=== PATIENT | male | born 1990 | race Caucasian/White ===

== ENCOUNTER 2025-02-12 03:00 | Emergency (ER) | payer OTHER ==
[~2025-02-12] VITALS: Ht 182.9 cm; Wt 83.9 kg
[2025-02-12] MEDS: MORPHINE SULFATE 2 MG/1 ML DISP.SYRIN IM ONE (03:45)
[2025-02-12] MEDS: ONDANSETRON ODT 4 MG TAB.RAPDIS SL ONE (03:45)
[2025-02-12] MEDS ORDERED: KETO10TA2 PO (05:32)
[2025-02-12 05:48] VITALS: BP 124/66; TEMP 98; O2SAT 99
== END 2025-02-12 05:40 | disposition home or self-care (01) ==
LOC: ER 03:12
DX: S43.492A Other sprain of left shoulder joint, initial encounter (principal); Z87.39 Personal history of other diseases of the musculoskeletal system and connective tissue; X58.XXXA Exposure to other specified factors, initial encounter; Y93.89 Activity, other specified; Y92.89 Other specified places as the place of occurrence of the external cause; Y99.8 Other external cause status
CPT/HCPCS: 73200; A4606; A4663